=== PATIENT | male | born 1975 | race Caucasian/White ===

== ENCOUNTER → 2018-08-25 | Outpatient (CLI) | payer OTHER ==
--- NOTE | 2018-08-25 20:34 | PCVCIMAG ---
EXAM: VENOUS DUPLEX RIGHT LOWER EXTREMITY INDICATION: Leg pain and swelling. FINDINGS: Right leg: No thrombus in the common femoral, main femoral, or popliteal veins. These veins are compressible with phasic flow. Calf veins are unremarkable where seen. Incidental note is made of acute/subacute appearing thrombus in the anterior accessory right great saphenous vein from near the takeoff with the common femoral vein to just below the level of the knee joint. IMPRESSION: No evidence of deep venous thrombosis in the right lower extremity as detailed above. Superficial venous thrombosis right anterior accessory great saphenous vein. EXAM: RIGHT SUPERFICIAL VENOUS DUPLEX INDICATION: Leg pain and swelling. FINDINGS: Right Great Saphenous Vein: At the saphenofemoral junction the diameter is 8.1 mm, in the mid thigh it is 7.6 mm, and in the calf it is 5.1 mm. There is not significant venous insufficiency/reflux throughout. Venous insufficiency/reflux duration is 0 seconds. Right Small Saphenous Vein: At the saphenopopliteal junction the diameter is 4.8 mm, and in the calf it is 4.4 mm. There is not significant venous insufficiency/reflux throughout. Venous insufficiency/reflux duration is 0 seconds. There is not a cranial extension present. IMPRESSION: Right Great Saphenous Vein: No significant venous insufficiency/reflux is present as noted above. Right Small Saphenous Vein: No significant venous insufficiency/reflux is present as noted above. Incidental note is made of acute/subacute occlusive thrombus in the anterior accessory right great saphenous vein as reviewed above. LOC:[id number]
== END | disposition home or self-care (01) ==
LOC: PCVCIMAG 13:28
PROVIDERS: ATTEND Nuclear Medicine Nuclear Cardiology
DX: I82.401 Acute embolism and thrombosis of unspecified deep veins of right lower extremity (principal); M79.89 Other specified soft tissue disorders
CPT/HCPCS: 93971